=== PATIENT | female | born 1950 | race Caucasian/White ===

== ENCOUNTER 2024-07-01 11:08 | Emergency (ER) | payer MEDICARE, BC | END 2024-07-01 12:14 | disposition home or self-care (01) | LOC: FB.ED 11:08 | DX: S05.12XA Contusion of eyeball and orbital tissues, left eye, initial encounter (principal); I10 Essential (primary) hypertension; W01.198A Fall on same level from slipping, tripping and stumbling with subsequent striking against other object, initial encounter; Y93.89 Activity, other specified | CPT/HCPCS: 70450; 70486; 99283 ==